=== PATIENT | female | born 1990 | race Caucasian/White ===

== ENCOUNTER 2017-11-05 02:46 | Emergency (ER) | payer BC ==
[~2017-11-05] VITALS: Ht 162.6 cm; Wt 78.4 kg
[2017-11-05] MEDS ORDERED: ZOFRAN4 MG PO (03:24)
[2017-11-05 03:53] VITALS: BP 125/74
== END 2017-11-05 03:54 | disposition home or self-care (01) ==
LOC: EXP 02:46 → EME 02:46 → EXP 03:54
DX: F10.129 Alcohol abuse with intoxication, unspecified (principal)
CPT/HCPCS: 99281; 99283